=== PATIENT | female | born 1980 ===

== ENCOUNTER 2017-07-05 12:19 | Emergency (ER) | payer MEDICAID ==
[2017-07-05 13:02] VITALS: BP 145/92; PULSE 86; RESP 16; TEMP 99; O2SAT 99
--- NOTE | 2017-07-05 14:27 | ED PDOC ---
History of Present Illness History of Present Illness: Madelin Gee is a 37 year old female, with no significant past medical history, who presents to the emergency department complaining of a non productive cough onset for x5 days. Patient reports today she used her son's albuterol/nebulizer with good relief of cough. She also reports having an upper back pain present only with coughing. She denies any hemoptysis, fever, chills, chest pain, shortness of breath, recent travel or sick contacts. No further medical complaints. PMD: None provided. HPI: Influenza Time Seen by Provider: 07/05/17 12:47 Chief Complaint: Cough, Cold, Congestion Chief Complaint (Provider): Cough History Per: Patient Exam Limitations: no limitations Have you had recent travel within the past 21 days to any of: No Onset/Duration Of Symptoms: Days (x5) Symptoms include: cough (non productive). denies: fever, chest pain, difficulty breathing Sick Contacts (Context): None Past Medical History Reviewed: Historical Data, Nursing Documentation, Vital Signs Vital Signs: Last Vital Signs Temp 99 F 07/05/17 13:00 Pulse 86 07/05/17 13:00 Resp 16 07/05/17 13:00 BP 145/92 H 07/05/17 13:00 Pulse Ox 99 07/05/17 13:00 - Medical History PMH: No Chronic Diseases - Surgical History Surgical History: No Surg Hx - Family History Family History: States: No Known Family Hx - Home Medications Home Medications: Ambulatory Orders Medication Instructions Recorded Albuterol HFA [Ventolin HFA 90 2 puff IH [id number] PRN #1 inhaler 07/05/17 mcg/actuation (8 g)] Benzonatate [Tessalon Perle] 100 mg PO Q8 PRN #14 capsule 07/05/17 - Allergies Allergies/Adverse Reactions: Allergies Allergy/AdvReac Type Severity Reaction Status Date / Time peanut Allergy ITCHING Verified 07/05/17 12:59 Review of Systems ROS Statement: Except As Marked, All Systems Reviewed And Found Negative Constitutional: Negative for: Fever, Chills Cardiovascular: Negative for: Chest Pain Respiratory: Positive for: Cough (non productive). Negative for: Shortness of Breath, Hemoptysis Musculoskeletal: Positive for: Back Pain (upper back present only with coughing) Physical Exam - Reviewed Nursing Documentation Reviewed: Yes Vital Signs Reviewed: Yes - Physical Exam Appears: Positive for: Non-toxic, No Acute Distress (speaking full sentences) Head Exam: Positive for: ATRAUMATIC, NORMAL INSPECTION, NORMOCEPHALIC Skin: Positive for: Normal Color, Warm, Dry Eye Exam: Positive for: Normal appearance ENT: Positive for: Normal ENT Inspection. Negative for: Pharyngeal Erythema, Tonsillar Exudate, Tonsillar Swelling Neck: Positive for: Painless ROM Cardiovascular/Chest: Positive for: Regular Rate, Rhythm. Negative for: Murmur Respiratory: Positive for: Normal Breath Sounds. Negative for: Respiratory Distress Extremity: Positive for: Normal ROM (upper and lower extremities). Negative for : Tenderness, Deformity, Swelling Neurologic/Psych: Positive for: Alert, Oriented. Negative for: Motor/Sensory Deficits Medical Decision Making Medical Decision Making: Initial Impression: URI Initial Plan: 14:25 Upon provider reevaluation patient is feeling better, is medically stable, and requires no further treatment in the ED at this time. Patient will be discharged home with Rx for albuterol and tessalon perle. Counseling was provided and all questions were answered regarding diagnosis and need for follow up with outpatient health clinic. There is agreement to discharge plan. Return if symptoms persist or worsen. ~ Scribe Attestation: Documented by Shmuel Harvey, acting as a scribe for Ramírez Villaseñor PA-C. Provider Scribe Attestation: All medical record entries made by the Scribe were at my direction and personally dictated by me. I have reviewed the chart and agree that the record accurately reflects my personal performance of the history, physical exam, medical decision making, and the department course for this patient. I have also personally directed, reviewed, and agree with the discharge instructions and disposition. - ECG O2 Sat by Pulse Oximetry: 99 (RA) Pulse Ox Interpretation: Normal Disposition - Clinical Impression Clinical Impression: URI (upper respiratory infection) - Patient ED Disposition Is Patient to be Admitted: No - Disposition Referrals: Kendy Aaron [Outside] Disposition: Routine/Home Disposition Time: 14:26 Condition: STABLE Additional Instructions: Follow up with PMD for further evaluation. Return to ED immediately if symptoms worsen. Prescriptions: Albuterol HFA [Ventolin HFA 90 mcg/actuation (8 g)] 2 puff IH [id number] PRN #1 inhaler PRN Reason: wheezing or cough Benzonatate [Tessalon Perle] 100 mg PO Q8 PRN #14 capsule PRN Reason: Cough Instructions: Viral Upper Respiratory Infection, Adult (DC) Forms: [employer] (Cymro)
== END 2017-07-05 15:05 | disposition home or self-care (01) ==
LOC: H.ER 12:19
DX: J06.9 Acute upper respiratory infection, unspecified (principal)

== ENCOUNTER 2017-10-27 19:04 | Emergency (ER) | payer MEDICAID ==
--- NOTE | 2017-10-27 20:50 | ED PDOC ---
Lower Extremity Pain/Injury Time Seen by Provider: 10/27/17 20:29 Chief Complaint (Nursing): Lower Extremity Problem/Injury Chief Complaint (Provider): Bilat Leg Swelling History Per: Patient History/Exam Limitations: no limitations Onset/Duration Of Symptoms: Days (x1 week) Current Symptoms Are (Timing): Still Present Additional Complaint(s): 37 year old female presents to the ED for evaluation of atraumatic bilateral LE swelling beginning one week ago. Patient reports she notices it when she wakes up, and becomes progressively worse throughout the day. 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 Otherwise, denies chest pain and shortness of breath. PMD: none provided Past Medical History Reviewed: Historical Data, Nursing Documentation, Vital Signs Vital Signs: Last Vital Signs Temp 98.5 F 10/27/17 19:30 Pulse 88 10/27/17 19:30 Resp 19 10/27/17 19:30 BP 143/78 10/27/17 19:30 Pulse Ox 98 10/27/17 19:30 - Medical History PMH: No Chronic Diseases - Surgical History Surgical History: No Surg Hx - Family History Family History: States: Unknown Family Hx - Living Arrangements Living Arrangements: With Family - Immunization History Hx Tetanus Toxoid Vaccination: No Hx Influenza Vaccination: No Hx Pneumococcal Vaccination: No - Home Medications Home Medications: Ambulatory Orders Medication Instructions Recorded Albuterol HFA [Ventolin HFA 90 2 puff IH [id number] PRN #1 inhaler 07/05/17 mcg/actuation (8 g)] Benzonatate [Tessalon Perle] 100 mg PO Q8 PRN #14 capsule 07/05/17 - Allergies Allergies/Adverse Reactions: Allergies Allergy/AdvReac Type Severity Reaction Status Date / Time peanut Allergy ITCHING Verified 07/05/17 12:59 Review of Systems ROS Statement: Except As Marked, All Systems Reviewed And Found Negative Cardiovascular: Negative for: Chest Pain Respiratory: Negative for: Shortness of Breath Musculoskeletal: Positive for: Other (atraumatic bilateral LE swelling) Physical Exam - Reviewed Nursing Documentation Reviewed: Yes Vital Signs Reviewed: Yes - Physical Exam Appears: Positive for: No Acute Distress Head Exam: Positive for: ATRAUMATIC, NORMOCEPHALIC Skin: Positive for: Normal Color, Warm, Dry Eye Exam: Positive for: Normal appearance Cardiovascular/Chest: Positive for: Regular Rate, Rhythm Respiratory: Positive for: Normal Breath Sounds. Negative for: Accessory Muscle Use, Respiratory Distress Pulses-Dorsalis Pedis (L): 2+ Pulses-Dorsalis Pedis (R): 2+ Extremity: Positive for: Normal ROM. Negative for: Pedal Edema, Calf Tenderness , Deformity Neurologic/Psych: Positive for: Alert, Oriented (x3). Negative for: Motor/ Sensory Deficits - Laboratory Results Result Diagrams: 10/27/17 21:27 10/27/17 21:27 - ECG O2 Sat by Pulse Oximetry: 98 (RA) Pulse Ox Interpretation: Normal Medical Decision Making Medical Decision Making: Time: 2052 Initial Impression: bilateral LE swelling Initial Plan: --CMP --CBC --XR left ankle XRs NAD as read by GIORGIO labs resulted and reviewed with Pt who demonstrated full understanding Scribe Attestation: Documented by Lena Watson, acting as a scribe for Vivian Ramires PA-C. Provider Scribe Attestation: All medical record entries made by the Scribe were at my direction and personally dictated by me. I have reviewed the chart and agree that the record accurately reflects my personal performance of the history, physical exam, medical decision making, and the department course for this patient. I have also personally directed, reviewed, and agree with the discharge instructions and disposition. Disposition - Clinical Impression Clinical Impression: Swelling of lower extremity - Patient ED Disposition Is Patient to be Admitted: No - Disposition Referrals: Ni Ferreira MD [Primary Care Provider] - Disposition: Routine/Home Disposition Time: 22:25 Condition: STABLE Instructions: Dependent Edema (DC) Forms: [employer] (Mosotho)
[2017-10-27 21:35] LABS: HEMOGLOBIN 8.1 g/dL (12.0-16.0); MEAN CELL VOLUME 59.1 fl (81.0-99.0); MEAN CORPUSCULAR HEMOGLOBIN 17.7 pg (27.0-31.0); MEAN CORPUSCULAR HGB CONC 29.9 g/dL (33.0-37.0); RBC 4.6 Mil/uL (3.80-5.20); RED CELL DISTRIBUTION WIDTH 18.6 % (11.5-14.5); WHITE BLOOD COUNT 7.5 K/uL (4.8-10.8)
[2017-10-27 21:47] LABS: ALB/GLOB RATIO 1.2 (1.0-2.1); ALBUMIN 4.3 g/dL (3.5-5.0); ALT/SGPT 9 U/L (9-52); AST/SGOT 24 U/L (14-36); BLOOD UREA NITROGEN 11 mg/dl (7-17); CALCIUM 9.5 mg/dL (8.4-10.2); GFR AFRICAN-AMERICAN > 60; GFR NON-AFRICAN AMERICAN > 60
[2017-10-27 22:40] VITALS: BP 122/70; PULSE 78; RESP 18; TEMP 98; O2SAT 100
--- NOTE | 2017-10-28 09:07 | RAD ---
Date of service: 10/27/2017 PROCEDURE: Bilateral Ankle Radiographs. HISTORY: edema and pain COMPARISON: Right ankle radiographs dated 05/13/2011; no prior imaging of the left ankle FINDINGS: BONES: Right Ankle: No acute fracture. Left Ankle: No acute fracture. JOINTS: Right Ankle: Ankle mortise maintained. Talar dome intact. Left Ankle: Ankle mortise maintained. Talar dome intact. SOFT TISSUES: Right Ankle: Normal. Left Ankle: Normal. OTHER FINDINGS: None. IMPRESSION: No demonstrated acute fracture or dislocation.
== END 2017-10-27 22:39 | disposition home or self-care (01) ==
LOC: H.ER 19:04
DX: R60.0 Localized edema (principal)

== ENCOUNTER 2018-08-17 12:05 | Emergency (ER) | payer MEDICAID ==
[2018-08-17 12:18] VITALS: O2SAT 100
--- NOTE | 2018-08-17 13:48 | ED PDOC ---
Syncope/Near Syncope/Dizziness Time Seen by Provider: 08/17/18 12:34 Chief Complaint (Nursing): Dizziness/Lightheaded Past Medical History Vital Signs: Last Vital Signs Temp 98.4 F 08/17/18 12:15 Pulse 80 08/17/18 12:15 Resp 17 08/17/18 12:15 BP 144/90 08/17/18 12:15 Pulse Ox 100 08/17/18 12:15 Primary Care Provider: Ni Ferreira - Medical History PMH: Anemia, Mitral Valve Prolapse - Family History Family History: States: Unknown Family Hx - Immunization History Hx Tetanus Toxoid Vaccination: No Hx Influenza Vaccination: No Hx Pneumococcal Vaccination: No - Home Medications Home Medications: Ambulatory Orders Medication Instructions Recorded Albuterol HFA [Ventolin HFA 90 2 puff IH [id number] PRN #1 inhaler 07/05/17 mcg/actuation (8 g)] Benzonatate [Tessalon Perle] 100 mg PO Q8 PRN #14 capsule 07/05/17 - Allergies Allergies/Adverse Reactions: Allergies Allergy/AdvReac Type Severity Reaction Status Date / Time peanut Allergy ITCHING Verified 07/05/17 12:59 - ECG O2 Sat by Pulse Oximetry: 100 Disposition - Disposition
[2018-08-17 14:42] LABS: BASO % 0.6 % (0.0-2.0); EOS % 0.1 % (0.0-4.0); HEMOGLOBIN 7.4 g/dL (12.0-16.0); LYMPH # 1.6 K/uL (1.0-4.3); LYMPH % 29.5 % (20.0-40.0); MEAN CELL VOLUME 56.8 fl (81.0-99.0); MEAN CORPUSCULAR HEMOGLOBIN 16.9 pg (27.0-31.0); MEAN CORPUSCULAR HGB CONC 29.7 g/dL (33.0-37.0); MEAN PLATELET VOLUME 9.8 fl (7.2-11.7); MONO # 0.4 K/uL (0.0-0.8); MONO % 6.9 % (0.0-10.0); NEUT # 3.3 K/uL (1.8-7.0); NEUT % 62.9 % (50.0-75.0); RBC 4.39 Mil/uL (3.80-5.20); WHITE BLOOD COUNT 5.3 K/uL (4.8-10.8)
[2018-08-17 14:51] LABS: BLOOD UREA NITROGEN 8 mg/dl (7-17); GFR NON-AFRICAN AMERICAN > 60
--- NOTE | 2018-08-17 15:19 | ED PDOC ---
- Laboratory Results Result Diagrams: 08/17/18 14:00 08/17/18 14:00 - ECG O2 Sat by Pulse Oximetry: 100 Medical Decision Making Medical Decision Making: Time: 1500 --Patient is endorsed to provider by Dr. Mireles, pending CT head results and reassessment. 1612: FINDINGS: HEMORRHAGE: No intracranial hemorrhage. BRAIN: Normal belcher-white matter differentiation and density are appreciated throughout the cerebrum and cerebellum with the brainstem appearing unremarkable as well. There is no mass effect. There is no suspicious extra-axial fluid collection and the midline brain anatomy appears diffusely unremarkable. VENTRICLES: Unremarkable. No hydrocephalus. CALVARIUM: Unremarkable. PARANASAL SINUSES: Unremarkable as visualized. No significant inflammatory changes. MASTOID AIR CELLS: Unremarkable as visualized. No inflammatory changes. OTHER FINDINGS: None. IMPRESSION: Unremarkable unenhanced head CT. 1622: Patient symptoms resolved. CT is unremarkable. Patient is stable for discharge; must follow up with PMD and neuro if symptoms continues. Scribe Attestation: Documented by Lena Medel, acting as a scribe for Jeanie Fuentes MD. Provider Scribe Attestation: All medical record entries made by the Scribe were at my direction and personally dictated by me. I have reviewed the chart and agree that the record accurately reflects my personal performance of the history, physical exam, medical decision making, and the department course for this patient. I have also personally directed, reviewed, and agree with the discharge instructions and disposition. Disposition - Clinical Impression Clinical Impression: Dizziness, Dizziness of unknown cause - POA Present On Arrival: None - Disposition Referrals: Alejo Mohan MD [Medical Doctor] - Disposition: Routine/Home Disposition Time: 16:22 Additional Instructions: Follow up with primary medical doctor and neurologist if symptoms continue. Return to the emergency department if symptoms worsen or if new symptoms develop. Prescriptions: Meclizine [Meclizine*] 25 mg PO Q6 #30 tab Instructions: Vertigo (a Type of Dizziness) (DC), Dizziness, Nonvertigo, (DC) Forms: [employer] ([employer]) [employer] (Estonian) Print Language: YAKUT
--- NOTE | 2018-08-17 16:15 | CT ---
Date of service: 08/17/2018 PROCEDURE: CT HEAD WITHOUT CONTRAST. HISTORY: dizziness COMPARISON: None available. TECHNIQUE: Axial computed tomography images were obtained through the head/brain without intravenous contrast. Radiation dose: Total exam DLP = 908.42 mGy-cm. This CT exam was performed using one or more of the following dose reduction techniques: Automated exposure control, adjustment of the mA and/or kV according to patient size, and/or use of iterative reconstruction technique. FINDINGS: HEMORRHAGE: No intracranial hemorrhage. BRAIN: Normal belcher-white matter differentiation and density are appreciated throughout the cerebrum and cerebellum with the brainstem appearing unremarkable as well. There is no mass effect. There is no suspicious extra-axial fluid collection and the midline brain anatomy appears diffusely unremarkable. VENTRICLES: Unremarkable. No hydrocephalus. CALVARIUM: Unremarkable. PARANASAL SINUSES: Unremarkable as visualized. No significant inflammatory changes. MASTOID AIR CELLS: Unremarkable as visualized. No inflammatory changes. OTHER FINDINGS: None. IMPRESSION: Unremarkable unenhanced head CT.
[2018-08-17 16:48] VITALS: BP 121/82; PULSE 73; RESP 19; TEMP 98.3
--- NOTE | 2018-08-17 16:55 | CARD ---
APPROVED REPORT Date of service: 08/17/2018 EKG Measurement Heart [id number] <Conclusion> Normal sinus rhythm Normal ECG
== END 2018-08-17 16:47 | disposition home or self-care (01) ==
LOC: H.ER 12:05
DX: R42 Dizziness and giddiness (principal)